=== PATIENT | female | born 1955 | race Caucasian/White ===

== ENCOUNTER 2023-02-03 09:19 | Day surgery (SDC) | payer MEDICARE, BC ==
[2023-02-03] MEDS ORDERED: Midazolam 1 MG/ML 2 ML SDV ONE (09:43)
[2023-02-03] MEDS ORDERED: fentaNYL 50 MCG/ML SDV ONE (09:43)
[2023-02-03] MEDS ORDERED: Propofol 200 MG/20 ML SDV ONE (09:43)
[2023-02-03] MEDS ORDERED: Lactated Ringers 1,000 ML IV SCH (10:00)
== END 2023-02-03 12:15 | disposition home or self-care (01) ==
LOC: JP.SDS 09:19
PROVIDERS: ATTEND Student in an Organized Health Care Education/Training Program
DX: K29.50 Unspecified chronic gastritis without bleeding (principal); K44.9 Diaphragmatic hernia without obstruction or gangrene; K21.00 Gastro-esophageal reflux disease with esophagitis, without bleeding
CPT/HCPCS: 43239; 88305; J2250; J2704; J3010; J7120